=== PATIENT | male | born 2000 | race Caucasian/White ===

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

== ENCOUNTER 2018-02-18 19:10 | Emergency (ER) | payer BC ==
[2018-02-18 19:30] VITALS: BP 148/70
--- NOTE | 2018-02-18 19:42 | UC ---
Skin Complaint HPI - HPI Summary HPI Summary: Pt presents with c/o of wound on left lower leg mid [place] that he got 2 weeks ago while walking outside and hitting on a rock. Pt cleaned wound and has been covering with a bandage and keeping it clean. Pt states today he had a small amount of "orange discharge" from wound today. Pt denies fever, chills, purulent discharge, increased erythema or swelling. - History of Current Complaint Chief Complaint: UCSkin Time Seen by Provider: 02/18/18 19:36 Stated Complaint: LEFT LEG SORE Hx Obtained From: Patient Onset/Duration: Sudden Onset Skin Exposure Onset/Duration: Days Ago Timing: Constant Onset Severity: Moderate Current Severity: Mild Pain Intensity: 0 Location: Discrete Aggravating Factor(s): Touch Alleviating Factor(s): Other - cleansing wound Associated Signs & Symptoms: Positive: Drainage - Allergy/Home Medications Allergies/Adverse Reactions: Allergies Allergy/AdvReac Type Severity Reaction Status Date / Time No Known Allergies Allergy Verified 02/18/18 19:30 Review of Systems Constitutional: Negative Skin: Other - acute wound/ healing Eyes: Negative ENT: Negative Respiratory: Negative Cardiovascular: Negative Gastrointestinal: Negative Genitourinary: Negative Motor: Negative Neurovascular: Negative Musculoskeletal: Negative Neurological: Negative Psychological: Negative Is Patient Immunocompromised?: No All Other Systems Reviewed And Are Negative: Yes PMH/Surg Hx/FS Hx/Imm Hx Previously Healthy: Yes - Surgical History Surgical History: Yes Surgery Procedure, Year, and Place: bilat hernia repair - Family History Known Family History: Positive: Cardiac Disease - Social History Occupation: Student Lives: With Family Alcohol Use: Occasionally Substance Use Type: None Smoking Status (MU): Never Smoked Tobacco Have You Smoked in the Last Year: No - Immunization History Most Recent Influenza Vaccination: did not get Physical Exam Triage Information Reviewed: Yes Appearance: Well-Appearing Vital Signs: Initial Vital Signs Temp 98.4 F 02/18/18 19:26 Pulse 78 02/18/18 19:26 Resp 17 02/18/18 19:26 BP 148/70 02/18/18 19:26 Pulse Ox 99 02/18/18 19:26 Vital Signs Reviewed: Yes Eye Exam: Normal ENT: Positive: Hearing grossly normal Respiratory Exam: Normal Musculoskeletal Exam: Normal Neurological Exam: Normal Psychological Exam: Normal Skin Exam: Other - 3 cm X 1 cm healing wound, with no drainage and granulated tissue in center. mild erythema at center and around wound Course/Dx - Differential Diagnoses - Skin Complaint Differential Diagnoses: Cellulitis, MRSA, Other - helaing wound - Diagnoses Provider Diagnoses: healing wound Discharge - Sign-Out/Discharge Documenting (check all that apply): Discharge/Admit/Transfer - Discharge Plan Condition: Stable Disposition: HOME Prescriptions: Cephalexin CAP* [Keflex 500 CAP*] 500 mg PO Q12H #10 cap Patient Education Materials: Acute Wound Care (ED), Acute Wounds (ED) Referrals: [facility] [place] [facility] [Outside] Non Staff,Doctor [Primary Care Provider] - Additional Instructions: Please monitor your wound for any worsening of infection such as increased redness, tenderness, fever, chills, and/or discharge. If this occurs please seek care immediately. - Billing Disposition and Condition Condition: STABLE Disposition: HOME
== END 2018-02-18 19:52 | disposition home or self-care (01) ==
LOC: UCCORT 19:10
DX: S81.802D Unspecified open wound, left lower leg, subsequent encounter (principal); W22.8XXD Striking against or struck by other objects, subsequent encounter
CPT/HCPCS: 99212; G0463